=== PATIENT | female | born 1960 | race Caucasian/White ===

== ENCOUNTER → 2023-10-02 07:01 | Outpatient (REF) | payer BC, SELFPAY | LOC: WDC 07:01 | PROVIDERS: ATTENDING PHYSICIAN Nurse Practitioner Adult Health; FAMILY PHYSICIAN Nurse Practitioner Adult Health | DX: Z12.31 Encounter for screening mammogram for malignant neoplasm of breast (principal) | CPT/HCPCS: 77063; 77067 ==

== ENCOUNTER → 2024-10-11 07:56 | Outpatient (REF) | payer BC, SELFPAY | LOC: WDC 07:56 | PROVIDERS: ATTENDING PHYSICIAN Nurse Practitioner Adult Health; FAMILY PHYSICIAN Nurse Practitioner Adult Health | DX: Z12.31 Encounter for screening mammogram for malignant neoplasm of breast (principal) | CPT/HCPCS: 77063; 77067 ==

== ENCOUNTER → 2025-04-06 17:04 | Outpatient (REF) | payer BC, SELFPAY | LOC: RAD 17:04 | PROVIDERS: ATTENDING PHYSICIAN Nurse Practitioner Adult Health | DX: G44.52 New daily persistent headache (NDPH) (principal); R20.2 Paresthesia of skin; H53.9 Unspecified visual disturbance; L72.9 Follicular cyst of the skin and subcutaneous tissue, unspecified | CPT/HCPCS: 70470; Q9967 ==